=== PATIENT | male | born 1985 | race American Indian/Alaskan Native ===

== ENCOUNTER 2018-04-04 19:01 | Emergency (ER) | payer SELFPAY ==
[2018-04-04 19:33] VITALS: BP 122/74
[2018-04-04] MEDS ORDERED: MOTRIN PO ONE (19:45)
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
== END 2018-04-04 20:47 | disposition home or self-care (01) ==
LOC: ED 19:01
DX: S39.012A Strain of muscle, fascia and tendon of lower back, initial encounter (principal); S13.4XXA Sprain of ligaments of cervical spine, initial encounter; F17.200 Nicotine dependence, unspecified, uncomplicated; V89.2XXA Person injured in unspecified motor-vehicle accident, traffic, initial encounter; Y93.89 Activity, other specified; Y99.8 Other external cause status; Y92.410 Unspecified street and highway as the place of occurrence of the external cause
CPT/HCPCS: 72040; 72100; 99283

== ENCOUNTER 2019-01-26 11:37 | Emergency (ER) | payer SELFPAY ==
[2019-01-26 12:18] VITALS: BP 130/67
--- NOTE | 2019-01-26 12:26 | Emergency Department Report ---
- General Chief complaint: Extremity Injury, Upper Stated complaint: POSS SPIDER BITE/R ARM PAIN Time Seen by Provider: 01/26/19 12:16 Source: patient Mode of arrival: Ambulatory Limitations: No Limitations - History of Present Illness Initial comments: 33 y/o male comes for bite to right inner forearm times 1 week. Patient has been using triple abx cream and peroxide. Has had no fevers and reports that the site is improving. Still having pain with small amount of clear than pus drainage. Severity scale (0 -10): 1 - Related Data Previous Rx's Medication Instructions Recorded Last Taken Type Cyclobenzaprine [Flexeril] 10 mg PO QHS PRN #10 tablet 04/04/18 Unknown Rx Ibuprofen [Motrin] 600 mg PO Q8H PRN #20 tablet 04/04/18 Unknown Rx cephALEXin [Keflex] 500 mg PO Q12HR #10 cap 01/26/19 Unknown Rx Allergies Allergy/AdvReac Type Severity Reaction Status Date / Time No Known Allergies Allergy Verified 04/04/18 19:29 Abscess Boil HPI - HPI Chief Complaint: Extremity Injury, Upper Stated Complaint: POSS SPIDER BITE/R ARM PAIN Time Seen by Provider: 01/26/19 12:16 Home Medications: Previous Rx's Medication Instructions Recorded Last Taken Type Cyclobenzaprine [Flexeril] 10 mg PO QHS PRN #10 tablet 04/04/18 Unknown Rx Ibuprofen [Motrin] 600 mg PO Q8H PRN #20 tablet 04/04/18 Unknown Rx cephALEXin [Keflex] 500 mg PO Q12HR #10 cap 01/26/19 Unknown Rx Allergies/Adverse Reactions: Allergies Allergy/AdvReac Type Severity Reaction Status Date / Time No Known Allergies Allergy Verified 04/04/18 19:29 ED Review of Systems ROS: Stated complaint: POSS SPIDER BITE/R ARM PAIN Other details as noted in HPI ED Past Medical Hx - Past Medical History Previous Medical History?: No Hx Arthritis: No Hx Asthma: No - Surgical History Past Surgical History?: No - Social History Smoking Status: Current Every Day Smoker Substance Use Type: None - Medications Home Medications: Home Medications Medication Instructions Recorded Confirmed Last Taken Type Cyclobenzaprine [Flexeril] 10 mg PO QHS PRN #10 tablet 04/04/18 Unknown Rx Ibuprofen [Motrin] 600 mg PO Q8H PRN #20 tablet 04/04/18 Unknown Rx cephALEXin [Keflex] 500 mg PO Q12HR #10 cap 01/26/19 Unknown Rx ED Physical Exam - General Limitations: No Limitations ED Medical Decision Making - Medical Decision Making 33 y/o male comes for bite to right inner forearm times 1 week. Patient has been using triple abx cream and peroxide. Has had no fevers and reports that the site is improving. Still having pain with small amount of clear than pus drainage. Will place patient on keflex for 7 days. Encourage to take OTC tylenol or ibuprofen. Critical care attestation.: If time is entered above; I have spent that time in minutes in the direct care of this critically ill patient, excluding procedure time. ED Disposition Clinical Impression: Cellulitis of arm, right Disposition: DC-01 TO HOME OR SELFCARE Is pt being admited?: No Does the pt Need Aspirin: No Condition: Stable Instructions: Cellulitis (ED) Additional Instructions: Complete abx as prescribed take over the counter pain medication. Prescriptions: cephALEXin [Keflex] 500 mg PO Q12HR #10 cap
== END 2019-01-26 12:51 | disposition home or self-care (01) ==
LOC: ED 11:37
DX: L03.113 Cellulitis of right upper limb (principal); F17.200 Nicotine dependence, unspecified, uncomplicated; Z79.1 Long term (current) use of non-steroidal anti-inflammatories (NSAID)
CPT/HCPCS: 99282

== ENCOUNTER 2020-08-31 00:20 | Emergency (ER) | payer OTHER ==
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
[2020-08-31] MEDS ORDERED: IBUPROFEN 800 MG TAB PO ONE (01:38)
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
[2020-08-31 02:54] VITALS: BP 122/66
== END 2020-08-31 02:56 | disposition home or self-care (01) ==
LOC: ED 00:20
DX: S13.4XXA Sprain of ligaments of cervical spine, initial encounter (principal); S39.012A Strain of muscle, fascia and tendon of lower back, initial encounter; Z79.899 Other long term (current) drug therapy; V49.49XA Driver injured in collision with other motor vehicles in traffic accident, initial encounter; Y92.410 Unspecified street and highway as the place of occurrence of the external cause; Y93.89 Activity, other specified; Y99.8 Other external cause status
CPT/HCPCS: 72040; 72100